=== PATIENT | male | born 1995 | race Caucasian/White ===

== ENCOUNTER 2020-09-12 10:39 | Emergency (ER) | payer OTHER, SELFPAY ==
--- NOTE | ~2020-09-12 | XR_ITS ---
EXAMINATION: XR chest 2V 09/12/2020 11:22 INDICATION: Dyspnea. PROCEDURE: 2 view chest COMPARISON: No prior studies for comparison. FINDINGS: The lungs are clear. The cardiomediastinal silhouette is within normal limits. There are no pleural effusions. There is no pneumothorax suspected. IMPRESSION: 1: NO ACUTE CARDIOPULMONARY DISEASE. Reviewed, dictated and finalized at location B.
[2020-09-12 10:53] VITALS: BP 137/72; PULSE 103; RESP 16; TEMP 38.4; O2SAT 99
--- NOTE | 2020-09-12 10:53 | ED.EXTPRO ---
HPI - Extremity Problem General Chief complaint: Extremity Problem,Nontraumatic Stated complaint: marc ankle swelling Source: patient and RN notes reviewed Mode of arrival: ambulatory Limitations: no limitations History of Present Illness HPI Narrative: 25-year-old male presents with concern for bilateral ankle pain and swelling, bilateral knee pain, bilateral wrist pain. Reports symptoms started having for approximately 5 days. Reports symptoms started after an 11-hour car ride. He denies any shortness of breath, difficulty breathing, cough. Reports symptoms improved with 800 mg ibuprofen. He has been taking ibuprofen twice daily. He denies body aches, chills, sweats, rhinorrhea, nasal congestion, loss of sense of taste or smell. Denies known sick contacts. MD Complaint: extremity swelling Related Data Allergies Allergy/AdvReac Type Severity Reaction Status Date / Time No Known Drug Allergies Allergy Other Verified 09/12/20 11:16 Review of Systems Review of Systems: Narrative: CONSTITUTIONAL: Denies malaise, chills, or fever.. Reports night sweats ENT: Denies rhinorrhea, congestion, sinus pain, otalgia or sore throat. CARDIOVASCULAR: Denies chest pain, palpitations, or edema. RESPIRATORY: Denies cough or dyspnea. GASTROINTESTINAL: Denies abdominal pain, nausea, vomiting, diarrhea SKIN: Denies rash or itching. MUSCULOSKELETAL: Reports bilateral ankle pain and swelling, bilateral knee pain, bilateral wrist pain NEUROLOGIC: Denies numbness, weakness, or headache. PSYCHIATRIC: Denies anxiety or depression. All systems reviewed & are unremarkable except as noted in HPI and below PMFSH Comments At time of signature, agree with nursing past medical, surgical, social and family history. There is no relevant family history pertinent to the presenting complaint Exam Narrative: Exam Narrative: GENERAL: Well-appearing, well-nourished, and in no acute distress. HEAD: Normocephalic, atraumatic. EYES: PERRLA, conjunctivae clear, and EOMI. No nystagmus. ENT: Nares clear. Mucous membranes moist. Oropharynx without erythema or lesions. Tonsils not enlarged and without exudate. NECK: Supple. No lymphadenopathy. No jugular venous distension, thyromegaly, or carotid bruits. Carotids were easily palpable bilaterally. CHEST: No respiratory distress. Clear to auscultation. No bony deformities, no asymmetry. Speaks in full sentences. HEART: Regular rate and rhythm. No murmur heard. Normal peripheral pulses. ABDOMEN: Soft, nontender, nondistended, normal active bowel sounds, no palpable masses. EXTREMITIES: Normal range of motion. No edema. Normal strength and sensation. SKIN: Warm, dry, no rash. NEURO: Alert and oriented x3. No focal deficits. Cranial nerves II through XII grossly intact PSYCH: Normal mood and affect Course Course Emergency Course: Discussed x-ray and Covid test findings with patient. Discussed importance of following up with primary care provider for further evaluation of his fever and bilateral multijoint pain. Patient is aware of, understands and agrees to treatment plan. Anticipatory guidance given. Patient agrees to follow-up as directed and is aware of reasons to seek care at the emergency department. Portions of this record may have been created with voice recognition software Vital Signs Vital signs: Vital Signs Temperature 101.2 F H 09/12/20 10:53 Pulse Rate 103 H 09/12/20 10:53 Respiratory Rate 16 09/12/20 10:53 Blood Pressure 137/72 09/12/20 10:53 Pulse Oximetry 99 09/12/20 10:53 Temperature 101.2 F H 09/12/20 10:53 Pulse Rate 103 H 09/12/20 10:53 Respiratory Rate 16 09/12/20 10:53 Blood Pressure 137/72 09/12/20 10:53 Pulse Oximetry 99 09/12/20 10:53 Reviewed. MDM - Extremity (Nontraumatic) MDM Narrative Medical decision making narrative: Exam findings and imaging show no acute concerns or changes; patient is non-toxic appearing and is in no distress. Patient is appropriate for o
== END 2020-09-12 11:46 | disposition home or self-care (01) ==
PROVIDERS: Emergency Provider Nurse Practitioner
DX: M25.472 Effusion, left ankle (principal); M25.471 Effusion, right ankle; M25.561 Pain in right knee; Z20.822 Contact with and (suspected) exposure to COVID-19
CPT/HCPCS: 71046; 87426; 99213; C9803; G0463

== ENCOUNTER → 2022-04-23 09:09 | Outpatient (CLI) | payer OTHER, SELFPAY ==
--- NOTE | ~2022-04-23 | MR_ITS ---
EXAMINATION: MR knee LT wo con DATE: 04/23/2022 09:46 INDICATION: Left knee pain. TECHNIQUE: Magnetic resonance imaging (MRI) of the left knee was performed without intravenous contra st. Sequences included axial PD-weighted FS FSE, coronal PD-weighted FSE and PD-weighted FS FSE, sagi ttal PD-weighted FSE, and sagittal T2-weighted FS FSE. COMPARISON: Left knee radiographs 03/05/2022 FINDINGS: Medial compartment: Medial meniscus is normal. There is an osteochondral lesion of medial femoral condyle involving the l ateral articular surface with fluid undermining a 13 x 13 x 7 mm fragment. Tibial cartilage is normal . Lateral compartment: Lateral meniscus is normal. There is cartilage surface irregularity of tibial condyle medially and fe moral condyle medially. Patellofemoral compartment: There is cartilage surface irregularity of patellar medial facet. Trochlear cartilage is normal. Ligaments and tendons: The anterior and posterior cruciate ligaments are normal. Medial collateral ligament and lateral poncho ateral ligament complex are normal. There is mild patellar tendinopathy. Fluid: There is a small knee joint effusion. There is a 13 x 8 x 7 mm loose body in patellofemoral compartme nt, likely a displaced osteochondral fragment. There is trace fluid in a Doe's cyst. IMPRESSION: 1. Unstable osteochondral lesion of medial femoral condyle with in situ fragment and displaced fragme nt. 2. Mild chondrosis of lateral and patellofemoral compartments. 3. Small knee joint effusion. Reviewed, dictated and finalized at location E. NE OFFICER IMPRESSION: 1. Unstable osteochondral lesion of medial femoral condyle with in situ fragmen t and displaced fragment. 2. Mild chondrosis of lateral and patellofemoral compartments. 3. Small knee joint effusion.
== END ==
PROVIDERS: PCP Physician Assistant; Visit Provider Nurse Practitioner
DX: M25.562 Pain in left knee (principal); M91.12 Juvenile osteochondrosis of head of femur [Legg-Calve-Perthes], left leg; M25.462 Effusion, left knee
CPT/HCPCS: 73721

== ENCOUNTER 2022-05-04 01:35 | Day surgery (SDC) | payer OTHER, SELFPAY ==
[2022-04-28 15:07] VITALS: BMI 37.6
--- NOTE | 2022-04-28 15:21 | PC.NURSE ---
Report to the Outpatient Waiting Room, entrance under the green pavilion located off [facility], at time __10:00AM on date _05/04/22 . Planned Procedure Time: _12:00PM . Time changes happen often and if your time is changed the preop area will call you the afternoon before. - You and your visitor will be asked to self-screen and do not enter if you have any COVID symptoms. - Only one visitor is requested with a max of two and NO children visitors are allowed at this time. - The patient visitor may be requested to leave or wait in car when not with patient due to distancing restrictions. - A mask is optional within the hospital. Patients may have clear liquids (water, carbonated beverages, clear teas, apple juice) until 3 hours prior to surgery with a maximum of 20 ounces. - No food from midnight until time of surgery Take the following medications with a SIP of water the morning of surgery: ___NONE Medications to discontinue per physician NONE Date to take last dose Please no make-up, nail sao tomean, hairspray, perfume, deodorant, or body powder the day of surgery. No jewelry (including any body piercings) or valuables the day of surgery, leave them at home. Please take a shower or bath the night before, or the morning of, surgery with an antibacterial soap. Wear comfortable, loose fitting clothing. Children are encouraged to wear pajamas. - Jewelry must be removed prior to entering the operating room. Rings and piercings that are not removed may be cut off. - The hospital will not accept responsibility for valuables. - Please leave all valuables, including medications, at home the day of surgery. If you are going home after surgery, a licensed stock driver must drive you home. - NO public transportation without another adult if you receive anesthesia. - We recommend that an adult stay with you for 24 hours following discharge. - We also recommend that you do not drive, make important decision, drink alcoholic beverages, or take any drugs that were not prescribed by your health care provider for at least 24 hours after your discharge time. Follow any additional instructions given to you from your surgeon. If you or anyone in your household have experienced Covid symptoms in the past week, please notify your surgeon or the nurse liaison at the phone number below for possible testing. Telephone instructions given to __PATIENT and asked if any additional questions and then verbalized understanding. Patient advised to call surgeon office or pre surgery nurse liaison [phone] if any additional questions.
[2022-05-04] VITALS (9 sets, daily range): BP systolic 120–148; BP diastolic 66–84; PULSE 72–87; RESP 12–20; TEMP 37; O2SAT 98–100; BMI 37.8
[2022-05-04] MEDS: LACTATED RINGERS 1,000 ML 30 ML IV CONT (08:50)
[2022-05-04] MEDS: KETOROLAC 15 MG/ML VIAL (*BKC) IV PUSH (08:53)
[2022-05-04] MEDS: ACETAMINOPHEN 500 MG TABLET 1000 MG PO (08:53)
--- NOTE | 2022-05-04 09:15 | SUR.PREOP ---
0915- Crutch training completed with patient. Patient demonstrated proper use of crutches- questions and concerns answered. Crutches ordered for patient's home use.
--- NOTE | 2022-05-04 09:25 | P.PNAN_ITS ---
Anes - Initial Pre Proc Eval Procedure: Operation Date: 05/04/22 10:30 Proposed Procedures p Left Knee Arthroscopy, Debride Osteochondral Lesion, Proceed As Indicated - Gennaro Argueta MD Date/Time: 05/04/22 09:25 Surgeon: Gennaro Argueta MD Pre Op Diagnosis: OCD lesion left knee Patient Data Age: 26 Gender: M Height: 1.83 m Weight: 126.6 kg Last Vital Signs Temp 37.0 C 05/04/22 08:30 Pulse 87 05/04/22 08:30 Resp 16 05/04/22 08:30 BP 148/77 H 05/04/22 08:30 Pulse Ox 100 05/04/22 08:30 O2 Del Method Room Air 05/04/22 08:30 Allergies Allergy/AdvReac Type Severity Reaction Status Date / Time No Known Drug Allergies Allergy Other Verified 05/04/22 08:42 Home Medications Medication Instructions Recorded Confirmed Type naproxen 500 mg tablet 500 mg PO BID PRN Pain 04/28/22 04/29/22 History Patient hx anesthesia problems: none Family hx anesthesia problems: none Results Review: All pre-operative results and documents have been reviewed as part of the pre- operative evaluation. 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 Informed Consent: The patient's anesthetic plan and its attendant risks and benefits were discussed with the patient/family/POA. Questions were solicited and answers provided to the satisfaction of the patient/family/POA.
--- NOTE | 2022-05-04 09:44 | WPDHPUPDATE1 ---
History and Physical Update Update Date/Time: 05/04/22 09:44 History and Physical has been reviewed, including an updated exam of the patient. There are NO changes in the patient's condition. Risks, benefits, and alternatives have been discussed and questions answered. Patient agrees to proceed with procedure.
[2022-05-04] MEDS: ceFAZolin 3 GM/D5W 100 ML 100 ML IVPB (10:03)
[2022-05-04] MEDS: LIDOCAINE HCL 1% PF INJ 5 ML VIAL 20 ML INFILTRATE (10:39)
--- NOTE | 2022-05-04 11:18 | P.OP_ITS ---
Procedure Note - Detailed Date of Procedure 05/04/22 Pre-op Diagnosis OCD lesion left knee Post-op Diagnosis Same Procedure Performed left knee arthroscopy with removal of OCD lesion medial femoral condyle Surgeon Gennaro Argueta MD Anesthesia General Description of Procedure The patient was identified and proper site identified and he was taken to the operating room, transferred to the OR table placing him supine taking care to pad the torso and extremities. After general anesthetic induction and intub ation, a nonsterile tourniquet was placed high on the left thigh but was not inflated. The left lower extremity was positioned, prepped and draped in usual sterile fashion. 10 cc of 1% lidocaine was injected into the subcutaneous tissue in the area of the portals at start of the procedure. The portals were established and the arthroscopy was carried out. Articular cartilage tricompartmentally was assessed. There was some fraying across the meniscus. The medial lateral compartment articular meniscal cartilage was in good shape. Anterior posterior cruciate ligaments were in continuity. OCD lesion was identified. It was barely tender to the posterior aspect with some soft tissue. There is also a loose fragment in the lateral gutter. The loose fragment and the fairly tethered were removed through an enlarged inferomedial portal without incident. Arthrocare Wand was used for intra-articular hemostasis. The knee was flushed with a copious amount of arthroscopic fluid and equipment was removed. Portals were closed with three O nylon suture and a sterile dressing was applied. He tolerated the procedure well, was awakened, extubated and taken to recovery area in stable condition. There were no known intraoperative complications. Estimated blood loss was negligible; he received perioperative antibiotics. Estimated Blood Loss 20 Drains No Packing No Pathology None sent Complications No immediate complications Condition Stable Disposition PACU [facility] Billing Surgery - Charge Forward: Surgery Billing ([id number])
[2022-05-04] MEDS: oxyCODONE HCL (*CRX) 5 MG TAB IR PO (12:28)
== END 2022-05-04 13:00 | disposition home or self-care (01) ==
PROVIDERS: PCP Physician Assistant; Visit Provider Orthopaedic Surgery
PROC: (CPT 29870; principal; 2022-05-04 10:30)
DX: M94.8X6 Other specified disorders of cartilage, lower leg (principal); M23.8X2 Other internal derangements of left knee; E66.9 Obesity, unspecified; Z68.37 Body mass index [BMI] 37.0-37.9, adult
CPT/HCPCS: 29877; A9270; J0690; J1100; J1885; J2250; J2405; J2704; J3010; J7120

== ENCOUNTER 2022-05-20 07:30 | Outpatient (RCR) | payer OTHER, SELFPAY ==
--- NOTE | 2022-05-06 14:49 | PTOPEVAL1 ---
Assessment and note entered by Darshan Locke, PT Evaluation Information Assessment Status Evaluation Diagnosis L knee scope Onset 05/04/22 Subjective Information Jeff reports that he had an initial knee injury when he was a kid skateboarding and after rest for a couple months he was okay until he went hiking on a camping trip earlier this year. He was going to [place] and doing well until her was riding his bike and had increased knee pain. He went and saw Dr. Argueta and patient elected for surgery. He had his knee scope on 05/04/22. He reports the knee feels well, but he has not been bending it and is still using his crutches to get around. Reported Pain Level Pain Score 4: Self Report Assessment PT Clinical Summary Jeff is a 26 year old patient coming into the clinic after a L knee scope done on 05/04/22. He has 0-15-65 degrees L knee range of motion, using crutches, but with a good gait pattern, and 3+/5 quad strength. Patient will benefit from physical therapy for strengthening, improving range of motion, and progressing back to his active lifestyle with modalities and manual therapy as needed for pain control. Plan of Care Interventions Electrical Stimulation,Gait Training,Hot Pack/Cold Pack,Manual Therapy,Neuro Re-education,Patient/ Caregiver Education,Therapeutic Activities, Therapeutic Exercise,Ultrasound PT Services Indicated Yes Treatment Frequency and 2x/wk for 4 weeks Duration These treatments will address the objective and functional deficits as defined above. The patient will be advanced safely and appropriately in order for the patient to progress towards his/her prior level of function. Additional exercises will be introduced and as well as a comprehensive home exercise program upon discharge, if needed, ?to ensure carryover of functional gains achieved in the clinic. This treatment plan has been reviewed and agreement upon by the patient.
--- NOTE | 2022-05-28 15:20 | PCPTNOTE ---
Patient called & cancelled scheduled appointment this date due to insurance issues.
--- NOTE | 2022-06-22 14:48 | PCPTNOTE ---
Admitting Provider: Attending Provider: Navneet Palacios APN Patient:Jeff Mullins Date of :1995 Patient has not returned for any further treatments since 05/20/2022, therefore (he/she) will be discharged at this time. Patient?s initial visit was on 05/06/2022 12:30 and (he/she) had a total of ____4____ visits. The goals have been partially met. Thank you for referring this patient to [facility]. Please review, sign, date and return this discharge summary TIFFANIE. I have been updated about the patient's current status and I agree with discharge from the above service at this time. Referring Physician Date
== END 2022-06-24 12:22 | disposition home or self-care (01) ==
LOC: ANHPT 07:30
PROVIDERS: PCP Physician Assistant; Visit Provider Nurse Practitioner
DX: Z48.89 Encounter for other specified surgical aftercare (principal); Z98.890 Other specified postprocedural states
CPT/HCPCS: 97110; 97161; 97530